=== PATIENT | male | born 1975 | race African-American/Black ===

== ENCOUNTER 2021-08-30 17:08 | Emergency (ER) | payer OTHER ==
[2021-08-30 17:28] VITALS: BMI 34.8
[2021-08-30] MEDS ORDERED: NALOXONE HCL 0.4 MG/ML VIAL IVPUSH ONE (18:25)
[2021-08-30] MEDS ORDERED: LACTATED RINGERS SOLUTION 1000 ML INFUS.BAG IV ONE (18:26)
[2021-08-30] MEDS ORDERED: NALOXONE HCL 0.4 MG/ML VIAL ONE (18:48)
[2021-08-30 18:59] LABS: BASO % 0.3 % (0-2.0); EOS % 0.9 % (0-4.5); HEMATOCRIT 34.5 % (35.4-49); HEMOGLOBIN 11.3 GM/dL (11.7-16.9); LYMPH % 24.8 % (8-40); MCH 27.7 pg (25.7-33.7); MCHC 32.8 g/dl (32.0-35.9); MEAN CELL VOLUME 84.4 fl (80-96); MEAN PLT VOLUME 9.1 fl (7.5-11.1); MONO % 11.1 % (3.8-10.2); NEUT % 62.9 % (42.8-82.8); PLATELET COUNT 226 10^3/uL (134-434); RBC 4.09 M/mm3 (4.00-5.60); RDW 15.9 % (11.9-15.9); WHITE BLOOD COUNT 5.3 K/mm3 (4.0-10.0)
[2021-08-30 19:15] LABS: CALCIUM 8.5 mg/dL (8.5-10.1)
[2021-08-30 19:16] LABS: ALBUMIN 3.3 g/dl (3.4-5.0); BLOOD UREA NITROGEN 9.3 mg/dL (7-18)
[2021-08-30 19:19] LABS: CREATININE 0.6 mg/dL (0.55-1.3)
[2021-08-30 19:27] LABS: BILIRUBIN,TOTAL 0.2 mg/dL (0.2-1)
[2021-08-31 01:34] LABS: URINE BARBITURATES NEGATIVE (NEGATIVE)
[2021-08-31 01:35] LABS: COCAINE, UR NEGATIVE (NEGATIVE); OPIATES, URI NEGATIVE (NEGATIVE); URINE AMPHETAMINES NEGATIVE (NEGATIVE)
[2021-08-31 01:50] LABS: METHADONE, UR NEGATIVE (NEGATIVE); PHENCYCLIDINE,URINE NEGATIVE (NEGATIVE); URINE BENZODIAZEPINES NEGATIVE (NEGATIVE)
[2021-08-31 07:27] VITALS: TEMP 92.2
[2021-08-31 10:55] VITALS: BP 120/67; PULSE 72
== END 2021-08-31 10:55 | disposition home or self-care (01) ==
LOC: JER 17:08
PROC: 3E033NZ Introduction of Analgesics, Hypnotics, Sedatives into Peripheral Vein, Percutaneous Approach (ICD-10-PCS; principal; 2021-08-30)
DX: F09 Unspecified mental disorder due to known physiological condition (principal)
CPT/HCPCS: 36415; 80053; 80307; 85025; 99284-25